=== PATIENT | female | born 1960 | race Caucasian/White ===

== ENCOUNTER 2019-08-31 22:35 | Emergency (ER) | payer MEDICAID ==
[~2019-08-31] VITALS: Ht 165.1 cm; Wt 83.0 kg
[2019-08-31 22:42] VITALS: BP 147/46
[2019-08-31] MEDS ORDERED: ZOLOFT100 MG PO ×2 (22:46→23:32)
[2019-08-31] MEDS ORDERED: LOTREL 5-10 MG1 EACH PO (22:47)
[2019-08-31] MEDS ORDERED: GLUMETZA1000 (22:48)
[2019-08-31] MEDS ORDERED: VISTARIL 25 MG25 M1 PO (23:32)
== END 2019-08-31 23:37 | disposition home or self-care (01) ==
LOC: M.ERS 22:35
DX: F41.0 Panic disorder [episodic paroxysmal anxiety] (principal); I10 Essential (primary) hypertension; E11.9 Type 2 diabetes mellitus without complications; G89.29 Other chronic pain; M54.9 Dorsalgia, unspecified; Z76.0 Encounter for issue of repeat prescription; Z85.72 Personal history of non-Hodgkin lymphomas